=== PATIENT | female | born 1990 | race Caucasian/White ===

== ENCOUNTER 2018-06-05 16:47 | Emergency (ER) | payer SELFPAY ==
[~2018-06-05] VITALS: Ht 162.5 cm; Wt 59.9 kg
[~2018-06-05 16:47] MED LIST: AMOXICILLIN500 M2 PO; HYDROCODONE BIT1 T11 PO; MOTRIN600 MG PO; MOTRIN800 MG PO; NKHM; ROBAXIN750 MG PO; TRAMADOL HCL50 MG PO; ZITHROMAX Z PA250 MG PO
[2018-06-05] MEDS ORDERED: Motrin,Rufen800 MG PO ×2 (16:54→17:04)
[2018-06-05] MEDS ORDERED: AMOXICILLIN500 M2 PO ×2 (16:54→17:04)
== END 2018-06-05 17:05 | disposition home or self-care (01) ==
LOC: ED 16:47
DX: K08.89 Other specified disorders of teeth and supporting structures (principal); H92.02 Otalgia, left ear

== ENCOUNTER 2019-09-04 23:08 | Emergency (ER) | payer SELFPAY ==
[~2019-09-04] VITALS: Ht 162.5 cm; Wt 62.6 kg
[~2019-09-04 23:08] MED LIST changes: +Motrin,Rufen800 MG PO
[2019-09-05 00:37] LABS: BILIRUBIN NEGATIVE (NEGATIVE); BLOOD NEGATIVE (NEGATIVE); CLARITY SL CLOUDY (CLEAR); COLOR YELLOW (YELLOW); GLUCOSE NEGATIVE (NEGATIVE); KETONE NEGATIVE (NEGATIVE); LEUKO ESTERASE NEGATIVE (NEGATIVE); NITRITE NEGATIVE (NEGATIVE); SPECIFIC GRAVITY 1.015 (1.005-1.030); UROBILINOGEN 0.2 E.U./dl (0.2-1.0)
[2019-09-05 00:50] LABS: RBC 0-2 rbc/hpf (0-2)
[2019-09-05 01:26] LABS: BASO # 0.1 10*3/uL (0.0-0.1); BASO % 0.4 % (0.0-1.0); EOS # 0.2 10*3/uL (0.0-0.4); EOS % 1.5 % (1.0-4.0); HEMATOCRIT 39.5 % (37.0-47.0); HEMOGLOBIN 12.6 g/dl (12.0-16.0); LYMPH # 3.1 10*3/uL (1.3-4.4); LYMPH % 22.6 % (27.0-41.0); MEAN CELL VOLUME 90.6 fl (81.0-99.0); MEAN CORPUSCULAR HGB 28.9 pg (27.0-31.0); MEAN CORPUSCULAR HGB CONC 31.9 g/dl (33.0-37.0); MEAN PLATELET VOLUME 9.4 fl (9.6-12.3); MONO # 0.8 10*3/uL (0.1-1.0); MONO % 5.4 % (3.0-9.0); NEUT # 9.7 10*3/uL (2.3-7.9); NEUT % 69.8 % (47.0-73.0); PLATELET COUNT AUTOMATED 221 10*3/uL (130-400); RED BLOOD COUNT 4.36 10*6/uL (4.10-5.10); RED CELL DISTRI WIDTH 12.4 % (0-14.5); WHITE BLOOD COUNT 13.9 10*3/uL (4.8-10.8)
[2019-09-05 01:42] LABS: ALBUMIN 3.8 gm/dl (3.1-4.5); ALKALINE PHOSPHATASE 69 U/L (45-117); BUN 17 mg/dl (7-24); CHLORIDE 107 mmol/L (98-107); CREATININE 0.81 mg/dL (0.55-1.02); POTASSIUM 3.9 mmol/L (3.5-5.1); SGOT/AST 14 IU/L (3-35); SGPT/ALT 32 U/L (12-78); SODIUM 140 mmol/L (136-145); TOTAL PROTEIN 7.1 gm/dL (6.4-8.2)
[2019-09-05] MEDS ORDERED: LEVOFLOXACIN500 MG PO (17:29)
[2019-09-05] MEDS ORDERED: FLAGYL500 MG PO (17:29)
[2019-09-05] MEDS ORDERED: TYLENOL325 M1 PO (17:29)
[2019-09-05] MEDS ORDERED: NAPROSYN500 MG PO (17:29)
[2019-09-05] MEDS ORDERED: REGLAN10 M1 PO (17:29)
[2019-09-06] MEDS ORDERED: REGLAN10 M1 PO (09:31)
[2019-09-06] MEDS ORDERED: LEVOFLOXACIN500 MG PO (09:31)
[2019-09-06] MEDS ORDERED: NAPROSYN500 MG PO (09:31)
[2019-09-06] MEDS ORDERED: TYLENOL325 M1 PO (09:31)
[2019-09-06] MEDS ORDERED: FLAGYL500 MG PO (09:31)
== END 2019-09-05 02:53 | disposition home or self-care (01) ==
LOC: ED 23:08
PROVIDERS: Emergency Medicine
DX: R10.9 Unspecified abdominal pain (principal)

== ENCOUNTER 2019-09-05 12:18 | Emergency (ER) | payer SELFPAY ==
[~2019-09-05] VITALS: Ht 162.5 cm; Wt 62.6 kg
[2019-09-05 13:08] LABS: BASO % 0.5 % (0.0-1.0); EOS # 0.1 10*3/uL (0.0-0.4); EOS % 0.9 % (1.0-4.0); HEMOGLOBIN 13.5 g/dl (12.0-16.0); LYMPH # 1.4 10*3/uL (1.3-4.4); LYMPH % 22.4 % (27.0-41.0); MEAN CELL VOLUME 91.3 fl (81.0-99.0); MEAN CORPUSCULAR HGB 29.3 pg (27.0-31.0); MEAN CORPUSCULAR HGB CONC 32.1 g/dl (33.0-37.0); MEAN PLATELET VOLUME 9.6 fl (9.6-12.3); MONO # 0.3 10*3/uL (0.1-1.0); MONO % 4.7 % (3.0-9.0); NEUT # 4.6 10*3/uL (2.3-7.9); NEUT % 71.3 % (47.0-73.0); PLATELET COUNT AUTOMATED 216 10*3/uL (130-400); RED CELL DISTRI WIDTH 12.4 % (0-14.5); WHITE BLOOD COUNT 6.4 10*3/uL (4.8-10.8)
[2019-09-05 13:22] LABS: ALBUMIN 4.1 gm/dl (3.1-4.5); ALKALINE PHOSPHATASE 74 U/L (45-117); BUN 11 mg/dl (7-24); CHLORIDE 108 mmol/L (98-107); CREATININE 0.93 mg/dL (0.55-1.02); POTASSIUM 4.3 mmol/L (3.5-5.1); SGOT/AST 14 IU/L (3-35); SGPT/ALT 30 U/L (12-78); SODIUM 141 mmol/L (136-145); TOTAL PROTEIN 7.3 gm/dL (6.4-8.2)
[2019-09-05] MEDS ORDERED: FLAGYL500 MG PO (17:29)
[2019-09-05] MEDS ORDERED: NAPROSYN500 MG PO (17:29)
[2019-09-05] MEDS ORDERED: REGLAN10 M1 PO (17:29)
[2019-09-05] MEDS ORDERED: LEVOFLOXACIN500 MG PO (17:29)
[2019-09-05] MEDS ORDERED: TYLENOL325 M1 PO (17:29)
[2019-09-06] MEDS ORDERED: NAPROSYN500 MG PO (09:31)
[2019-09-06] MEDS ORDERED: LEVOFLOXACIN500 MG PO (09:31)
[2019-09-06] MEDS ORDERED: REGLAN10 M1 PO (09:31)
[2019-09-06] MEDS ORDERED: FLAGYL500 MG PO (09:31)
[2019-09-06] MEDS ORDERED: TYLENOL325 M1 PO (09:31)
== END 2019-09-05 17:48 | disposition home or self-care (01) ==
LOC: ED 12:18
PROVIDERS: Emergency Medicine
DX: R10.31 Right lower quadrant pain (principal); F17.200 Nicotine dependence, unspecified, uncomplicated

== ENCOUNTER 2020-03-10 16:05 | Emergency (ER) | payer MEDICAID ==
[~2020-03-10] VITALS: Wt 64.4 kg
[~2020-03-10 16:05] MED LIST changes: +FLAGYL500 MG PO; +LEVOFLOXACIN500 MG PO; +NAPROSYN500 MG PO; +REGLAN10 M1 PO; +TYLENOL325 M1 PO
[2020-03-10] MEDS ORDERED: MEDROL DOSEPAK4 MG PO (16:41)
== END 2020-03-10 20:59 | disposition home or self-care (01) ==
LOC: ED 16:05
DX: H00.11 Chalazion right upper eyelid (principal); F17.200 Nicotine dependence, unspecified, uncomplicated; Z79.899 Other long term (current) drug therapy

== ENCOUNTER 2020-08-19 10:06 | Emergency (ER) | payer SELFPAY ==
[~2020-08-19] VITALS: Wt 61.7 kg
[~2020-08-19 10:06] MED LIST changes: +MEDROL DOSEPAK4 MG PO
[2020-08-19] MEDS ORDERED: NAPROSYN500 MG PO (10:36)
[2020-08-19] MEDS ORDERED: TYLENOL325 M1 PO (10:36)
== END 2020-08-19 10:44 | disposition home or self-care (01) ==
LOC: ED 10:06
DX: M25.531 Pain in right wrist (principal); Z79.899 Other long term (current) drug therapy

== ENCOUNTER 2021-05-25 11:47 | Emergency (ER) | payer MEDICAID ==
[~2021-05-25] VITALS: Wt 59.0 kg
== END 2021-05-25 14:54 | disposition home or self-care (01) ==
LOC: ED 11:47
DX: R05.9 Cough, unspecified (principal); Z20.822 Contact with and (suspected) exposure to COVID-19; R68.83 Chills (without fever)